=== PATIENT | male | born 2000 ===

== ENCOUNTER 2024-02-14 08:14 | Emergency (ER) | payer BC, OTHER ==
[2024-02-14] MEDS: Ketorolac 30 MG/ML SDV IM ONE (08:57)
[2024-02-14] MEDS: Bacitracin Oint 1 GM U/D Packet TOP ONE (09:00)
[2024-02-14] MEDS: Lidocaine 1% 5 ML VIAL INJECT ONE (09:01)
== END 2024-02-14 11:20 | disposition home or self-care (01) ==
LOC: DL.ED 08:14
DX: S62.663B Nondisplaced fracture of distal phalanx of left middle finger, initial encounter for open fracture (principal); S60.142A Contusion of left ring finger with damage to nail, initial encounter; Z79.899 Other long term (current) drug therapy; Z88.1 Allergy status to other antibiotic agents; W22.8XXA Striking against or struck by other objects, initial encounter
CPT/HCPCS: 26725; 73130-LT; 96372; 99283-25; 99284; A9270-GY; J1885; J3490